=== PATIENT | male | born 1950 | race Caucasian/White ===

== ENCOUNTER 2016-02-10 08:00 | Outpatient (CLI) | payer MEDICARE | END 2016-02-10 23:59 | DX: Z00.00 Encounter for general adult medical examination without abnormal findings (principal); Z12.5 Encounter for screening for malignant neoplasm of prostate | CPT/HCPCS: 80053; 80061; 84443; 85025; G0103 ==

== ENCOUNTER 2017-06-02 05:07 | Outpatient (CLI) | payer MEDICARE ==
[2017-06-02 05:33] LABS: BASOPHILS # (AUTO) 0.1 10^3/uL (0.0-0.1); BASOPHILS % (AUTO) 0.8 %; EOSINOPHILS # (AUTO) 0.3 10^3/uL (0.0-0.7); EOSINOPHILS % (AUTO) 2.9 %; HGB - HEMOGLOBIN 14.6 g/dL (14.0-18.0); LYMPHOCYTES # (AUTO) 3.1 10^3/uL (1.5-3.5); MEAN CORPUSCULAR HEMOGLOBIN 31.9 pg (27.0-31.0); MEAN CORPUSCULAR HGB CONC 33.9 g/dL (32.0-36.0); MEAN CORPUSCULAR VOLUME 94.1 fL (80.0-94.0); MEAN PLATELET VOLUME 9.8 fL (7.4-11.4); MONOCYTES # (AUTO) 0.7 10^3/uL (0.0-1.0); MONOCYTES % (AUTO) 7.5 %; NEUTROPHILS # (AUTO) 5.2 10^3/uL (1.5-6.6); NEUTROPHILS % (AUTO) 55.8 %; PLT - PLATELET COUNT 171 10^3/uL (130-450); RED BLOOD COUNT 4.56 10^6/uL (4.70-6.10); RED CELL DISTRIBUTION WIDTH 13.3 % (12.0-15.0); WHITE BLOOD COUNT 9.3 x10^3/uL (4.8-10.8)
[2017-06-02 06:03] LABS: ALBUMIN/GLOBULIN RATIO 1.4 (1.0-2.2); ALKALINE PHOSPHATASE 61 IU/L (42-121); ALT ALANINE AMINOTRANSFERASE 37 IU/L (10-60); AST ASPARTATE AMINOTRANSFERASE 29 IU/L (10-42); BILIRUBIN,TOTAL 0.4 mg/dL (0.2-1.0); BUN - BLOOD UREA NITROGEN 16 mg/dL (6-20); CALCIUM 8.8 mg/dL (8.5-10.3); CARBON DIOXIDE - CO2 29 mmol/L (21-32); CHLORIDE 102 mmol/L (101-111); CHOL/HDL RATIO 4.7 (<5.0); CHOLESTEROL 185 mg/dL; CREATININE 1.3 mg/dL (0.6-1.2); GFR - MDRD 55 (>89); GLUCOSE 112 mg/dL (70-100); HDL CHOLESTEROL 39 mg/dL; LDL CHOLESTEROL,CALCULATED 120 mg/dL; LDL/HDL RATIO 3.1 (<3.6); SODIUM 134 mmol/L (135-145); TOTAL PROTEIN 6.9 g/dL (6.7-8.2); VLDL CHOLESTEROL 26 mg/dL
[2017-06-04 15:16] LABS: HEPATITIS C ANTIBODY NON-REACTIVE (NON-REACTIVE)
== END 2017-06-02 05:08 | disposition home or self-care (01) ==
LOC: LAB 05:07
PROVIDERS: ATTEND Physician Assistant Medical
DX: Z00.00 Encounter for general adult medical examination without abnormal findings (principal); Z12.5 Encounter for screening for malignant neoplasm of prostate; Z72.89 Other problems related to lifestyle; N18.9 Chronic kidney disease, unspecified; E78.6 Lipoprotein deficiency
CPT/HCPCS: 80053; 80061; 84443; 85025; 86803; G0103; 83721; 84153

== ENCOUNTER 2017-12-07 04:13 | Outpatient (CLI) | payer MEDICARE ==
[2017-12-07 06:32] LABS: GLUCOSE 112 mg/dL (70-100); HDL CHOLESTEROL 37 mg/dL
[2017-12-07 07:03] LABS: HB2 TOTAL 15.1 g/dL; HEMOGLOBIN A1C 0.59 g/dL; HEMOGLOBIN A1C % 5.7 % (4.6-6.2)
== END 2017-12-07 04:14 | disposition home or self-care (01) ==
LOC: LAB 04:13
PROVIDERS: ATTEND Physician Assistant Medical
DX: R73.9 Hyperglycemia, unspecified (principal); E78.6 Lipoprotein deficiency
CPT/HCPCS: 36415; 82947; 83036; 83718

== ENCOUNTER 2019-10-08 12:52 | Outpatient (CLI) | payer MEDICARE ==
--- NOTE | 2019-10-08 14:04 | SLEEP CARE CONSULTATION ---
Information from patient questionnaire entered by Karen Burnham. I have reviewed and concur with the information entered by Karen Burnham. This document represents the service I personally performed and the decisions made by me, Penny Sanches ARNP. History of Present Illness Service Date and Time: 10/08/2019 1252 Reason for Visit: New patient Chief Complaint: reports: Insomnia, Unrefreshed sleep, Snoring, Excessive daytime sleepiness, Observed pauses in breathing, Fatigue, Frequent awakenings at night, Other (shortness of breath) Date of Onset: 4 months Usual bedtime: 2200 Time it takes to fall asleep: 5-10 minutes Snores at night: Yes Observed to quit breathing while asleep: No Sleeps alone due to snoring: Yes Number of times waking at night: 6-8 Reasons for waking at night: reports: Snoring, Bathroom. denies: Choking, Gasping for air Toss, Turn, or Twitch while sleeping: Yes Recalls having dreams: Yes (and no) Usually gets out of bed at: [id number] Feels refreshed in the morning: No Morning headache: Yes (sometimes; 1-2 times a week, recently; last 20 minutes) Sleepy or fatigued during the day: Yes Ever fallen asleep while driving: No Takes day naps: Yes (daily 1-2 hours) Dreams during day naps: No Prior sleep studies: No Additional HPI information: I had the pleasure of seeing RUDDY RUBALCAVA today regarding the possibility of him having a sleep disorder. His current complaints are insomnia, unrefreshed sleep, snoring, excessive daytime sleepiness, possible witness pauses in breathing with gasps/deep draws in of air, fatigue and frequent night awakenings. He states recently he started having shortness of breath with activity that was out of the ordinary. His PCP has already been evaluating him for this and because of his history of hypertension and aortic dissection referred him here for evaluation. He had to dissection in 2016 and has had depression since which caused him to gain weight and keep him from wanting do things. He has noticed more in the last 4 months his snoring and other symptoms. He has been a traveling musician for years and always took Ambien nightly to get to sleep. He thinks his symptoms may have been going on for longer. - Parasomnia Symptoms Ever been unable to move upon waking from sleep: No Walks in sleep: Yes (when young) Talks in sleep: Yes (many years since has done this) Ever acted out dreams in sleep: No Ever felt weak in the knees when startled or emotional: No Bothered by creepy, crawly, restless sensations in legs: Yes (muscle leg movements or cramps) Problems with memory or concentration: No Subjective Initial [place] Sleepiness Scale score: 12 Past Medical History Past Medical History: reports: Hypertension, Claustrophobia (just a little bit), Arthritis, Anxiety, Depression (came with heart surgery and last 4 years), Other (back and neck issues; dissection of of aortic B in February 2015). denies: Congestive Heart Failure, Diabetes, Stroke, Coronary Heart Disease, Insulin resistance, Arrythmia, Hypothyroidism, Anemia, Impotence, Asthma, GERD Social History The patient's occupation is retired. Patient is and lives in [place]. Have you smoked in the past 12 months: No Cigarettes per day (20/pack): 40 Years of smokin Quit date: 1974 Smoking Pack Years: 14.0 Alcohol use: Yes Alcohol amount and frequency: 2 drinks/day Caffeine use: Yes Caffeine amount and frequency: 1 cup/day Family History Family history of sleep disordered breathing: No Family Hx Sleep Apnea: Mother: Snoring Allergies and Home Medications Drug allergies reviewed: Yes (NKDA) Home medication list reviewed: Yes Allergy and home medication list: Labetalol telmisartin amlodipine clonidine HCTZ low dose aspirin Turmeric one puff of cannabis daily Review of Systems Weight gain over past 5 years: 30 Cardiovascular: reports: high blood pressure, leg or foot swelling. denies: palpitations, chest pain, irregular heart rate or pulse Respiratory: reports: shortness of breath. denies: chronic cough Gastrointestinal: denies: heartburn, difficulty swallowing Urinary: reports: frequency, urgency. denies: impotence Neurological: denies: headaches, seizure, head trauma, speech dysfunction, gait or balance problems Psychiatric: reports: anxiety, depression, claustrophobia. denies: mood disorder Ear/Nose/Throat: reports: nasal congestion, dry mouth/throat (all the time), injury to nose (fracture when young), tonsillectomy. denies: sinus problems, nose bleeds, wisdom teeth removed Endocrine: reports: sluggishness, increased urination, unexplained weakness. denies: thyroid disease Musculoskeletal: reports: joint pain, neck pain, back pain, joint swelling, musc le pain or cramping, mobility problems Immunologic: reports: allergies to food or environment (pollen) Physical Exam Blood Pressure: 148/85 Cuff size: long Heart Rate: 55 O2 Saturation: 97 Height: 5 ft 9 in Weight: 280 lb Body Mass Index: 41.3 BMI Classification: Morbidly Obese HEENT: No craniofacial malformation Nostrils: patent to airflow Turbinates: normal Septum: midline Mouth and throat: normal Soft palate: long Hard palate: normal Uvula: long Uvula visualization: 100% Mallampati Class I Tongue: enlarged in size with teeth mancia on lateral edges Tonsils: absent bilaterally Chin and jaw: normal size and position Neck: normal w/o lymphadenopathy or thyromegaly Lungs: clear bilaterally Impression and Plan 1. Suspected Obstructive Sleep Apnea-Hypopnea Syndrome, as suggested by a history of loud and irregular snoring, observed cessation of breath while asleep, gasping or choking in sleep, frequent awakening during the night, unrefreshed sleep, and excessive daytime sleepiness. Narrow oropharynx and obesity are common predisposing factors for obstructive sleep apnea-hypopnea syndrome. Patient has a history of hypertension and an aortic dissection. He is morbidly obese with a BMI of 41.3. Patient states he is trying to lose weight and take care of his health. I recommend proceeding to polysomnography to confirm the diagnosis and to assess severity. If the patient has significant sleep disordered breathing, a manual CPAP titration study will also be performed to find the optimal treatment pressure. I informed the patient of what the sleep studies involve and after some discussion, obtained agreement to proceed. The pathophysiology of obstructive sleep apnea-hypopnea syndrome was discussed with the patient and health risks of cardiovascular and cerebrovascular disease if not treated. AASM brochure for obstructive sleep apnea-hypopnea syndrome given and reviewed. Risks of drowsy driving discussed in detail and patient advised to avoid long distance driving and to cloth covered helmet puller at the first sign of drowsiness. Patient agreed to plan. * Schedule polysomnography +- manual CPAP titration study. * Avoid long distance driving or driving when feeling sleepy. * Avoid alcohol, sedative and muscle relaxant around bedtime. * Attempt to lose weight. * Review instructions provided by trained office staff on how to prepare for the sleep study. * Return for follow-up after sleep study completed. Visit Type: In Office Time Spent with Patient (minutes): 32 Provider Statement: I spent 100% of the Face to Face Visit with the patient with greater than 50% spent counseling the patient and coordination of care.
[2019-10-08 14:05] VITALS: BP 148/85
== END 2019-10-08 12:53 | disposition home or self-care (01) ==
LOC: SC 12:52
PROVIDERS: ATTEND Nurse Practitioner Family
DX: G47.10 Hypersomnia, unspecified (principal); R53.83 Other fatigue; R06.83 Snoring; R06.81 Apnea, not elsewhere classified; G47.8 Other sleep disorders; E66.01 Morbid (severe) obesity due to excess calories; Z68.41 Body mass index [BMI] 40.0-44.9, adult; I10 Essential (primary) hypertension
CPT/HCPCS: 99204; G0463; 99212

== ENCOUNTER → 2019-11-08 | Outpatient (CLI) | payer MEDICARE | LOC: SC 19:30 | PROVIDERS: ATTEND Nurse Practitioner Family | DX: G47.33 Obstructive sleep apnea (adult) (pediatric) (principal); E66.01 Morbid (severe) obesity due to excess calories; Z68.41 Body mass index [BMI] 40.0-44.9, adult | CPT/HCPCS: G0399 ×2; 95806 ==

== ENCOUNTER 2019-11-13 15:11 | Outpatient (CLI) | payer MEDICARE ==
--- NOTE | 2019-11-13 17:22 | XRAY Report ---
PROCEDURE: Chest 2 View X-Ray INDICATIONS: SHORTNESS OF BREATH TECHNIQUE: 2 view(s) of the chest. COMPARISON: 02/17/2015. FINDINGS: Surgical changes and devices: Aortic arch endovascular stent graft.. Lungs and pleura: No pleural effusions or pneumothorax. Lungs are clear. Mediastinum: Mediastinal contours are normal. Heart size is normal. Bones and chest wall: No suspicious bony abnormalities. Soft tissues appear unremarkable. IMPRESSION: No acute cardiopulmonary disease process. Reviewed by: Bernie Rivas MD, PhD on 11/13/2019 5:21 PM PDT Approved by: Bernie Rivas MD, PhD on 11/13/2019 5:21 PM PDT Station ID: [id number]
== END 2019-11-13 15:12 | disposition home or self-care (01) ==
LOC: DI 15:11
PROVIDERS: ATTEND Internal Medicine
DX: R06.02 Shortness of breath (principal)
CPT/HCPCS: 71046

== ENCOUNTER 2019-11-25 17:29 | Outpatient (CLI) | payer MEDICARE ==
--- NOTE | 2019-11-25 10:32 | SLEEP CARE CONSULTATION ---
Information from patient questionnaire entered by Karen Burnham. I have reviewed and concur with the information entered by Karen Burnham. This document represents the service I personally performed and the decisions made by me, Derrick Mcfarland MD, [facility]. History of Present Illness Service Date and Time: 11/25/2019 1020 Initial [place] Sleepiness Scale score: 12 (in 2019) Additional HPI information: To minimize the risk of COVID-19 exposure, the patient has requested and consented to this telephone visit. The patient also agrees to having his insurance billed. HPI: Mr. Hernandez was called for a follow up of the sleep study he had on 11/08/2019. The test showed severe obstructive sleep apnea-hypopnea with an AHI of 52.6 per hour of recording time was based on a total of 140 scored apneas and 165 scored hypopneas with 4% desaturations. Supine AHI 4%: 36.6 per hour. Non- supine AHI4%: 54.0 per hour. Patient's baseline O2 saturation was 93.7 %. The patient spent 119.4 minutes at an oxygen saturation less than 90%, and 10.2 minutes less than 85%. The desaturation index was 53.8 events per hour sleep time. The lowest saturation was 74.0%. The patient was informed of these findings. I explained to him the pathophysiology behind obstructive sleep apnea. We then spent quite a bit of time discussing different treatment options. For mild obstructive sleep apnea, surgery and oral appliance are alternatives to nasal CPAP therapy but in moderate or severe cases, nasal CPAP is the most effective and reliable treatment. Weight loss in an obese individual is strongly recommended. After some discussion, he opted to go with the nasal CPAP therapy. I explained to him how CPAP machine works and what to expect when using the machine. He is encouraged to use CPAP every night especially in the first 2 to 3 nights in order to get used to it. He should call his CPAP supplier or me to discuss any mechanical problem that may occur. If he snores or feels like he is not getting enough air from the machine, he should notify me and I will increase the pressure. Sleep Study - Results Type of Sleep Study: Home sleep study Year and Where: 11/2019 [facility] Allergies and Home Medications Drug allergies reviewed: Yes Home medication list reviewed: Yes Review of Systems Review of systems same as previous: Yes Physical Exam Vital signs obtained and entered by: N/A Height: 5 ft 9 in Impression and Plan IMPRESSION: 1. Obstructive Sleep Apnea-Hypopnea Syndrome, severe, associated with moderate hypoxemia. Obviously this is the cause of the patients symptoms of unrefreshed sleep, and excessive daytime sleepiness. As mentioned above, the patient will be started on an autoCPAP set at 5 - 15 cmH2O. Depending on his response and compliance he may be brought back for an overnight CPAP titration study. PLAN: 1. Prescription made for an autoCPAP, heated humidifier, and related supplies. 2. Attempt to lose weight and avoid alcohol consumption near bedtime. 3. The patient is again cautioned about driving until his sleepiness completely resolves on the CPAP therapy. 4. Consider referring the patient to a cco & president for further evaluation of dyspnea on exertion. 5. Return in six weeks for follow up. I will assess his response and compliance at that time. Prescriptions: Auto CPAP Follow up with Sleep Care in: 1-2 months Visit Type: Telehealth Video Video Type: Yenifer Patient Location: Home Location of Provider: Home Patient agrees and consents to this telehealth visit type: Yes Patient agrees to have their insurance billed: Yes Time Spent with Patient (minutes): 15 Provider Statement: I spent 100% of the Telehealth Video Call with the patient with greater than 50% spent counseling the patient and coordination of care.
== END 2019-11-25 17:30 | disposition home or self-care (01) ==
LOC: SC 17:29
PROVIDERS: ATTEND Internal Medicine Pulmonary Disease
DX: G47.33 Obstructive sleep apnea (adult) (pediatric) (principal)

== ENCOUNTER 2020-03-27 14:39 | Emergency (ER) | payer MEDICARE ==
--- NOTE | 2020-03-27 15:04 | ED Physician Documentation ---
History of Present Illness - Stated complaint Stated Complaint: SWOLLEN FEET - Chief complaint Chief Complaint: Ext Problem - History obtained from History obtained from: Patient - Additonal information Additional information: He has a history of surgically repaired aortic dissection and recalcitrant hypertension for which he takes labetalol 200 in the morning and then 400 in the afternoon and 400 in the evening, clonidine 0.2 mg in the morning, telmisartan 40 mg twice a day, amlodipine 5 mg twice a day, hydrochlorothiazide 25 mg once a day. Over last month he developed bilateral pedal edema, it started on the right but is now both sides. Feels full but not painful. No increase shortness of breath or chest pain. Review of Systems Ten Systems: 10 systems reviewed and negative Cardiac: denies: Chest pain / pressure, Palpitations Respiratory: denies: Dyspnea, Cough PD PAST MEDICAL HISTORY - Past Medical History Cardiovascular: Hypertension, [place] Respiratory: None Endocrine/Autoimmune: None GI: None : None, Other HEENT: None Psych: None Musculoskeletal: Osteoarthritis Derm: None - Past Surgical History Past Surgical History: No HEENT: Tonsil/Adenoidectomy - Present Medications Home Medications: Ambulatory Orders Medication Instructions Recorded Confirmed Telmisartan/Hydrochlorothiazid 1 tab PO DAILY 02/22/15 03/27/20 [Micardis Hct 40-12.5 mg Tablet] hydroCHLOROthiazide 25 mg PO DAILY 02/22/15 03/27/20 [Hydrochlorothiazide] Ascorbic Acid [Vitamin C] 1,000 mg PO DAILY 03/27/20 03/27/20 Furosemide [Lasix] 20 mg PO DAILY #30 03/27/20 Labetalol [Trandate] 200 mg PO TID 03/27/20 03/27/20 Potassium Chloride 10 meq PO DAILY #30 03/27/20 amLODIPine [Norvasc] 5 mg PO BID 03/27/20 03/27/20 cloNIDine [Catapres] 0.2 mg PO DAILY 03/27/20 03/27/20 - Allergies Allergies/Adverse Reactions: Allergies Allergy/AdvReac Type Severity Reaction Status Date / Time No Known Drug Allergies Allergy Verified 03/27/20 14:46 - Social History Does the pt smoke?: No Smoking Status: Never smoker Does the pt drink ETOH?: Yes Does the pt have substance abuse?: No - Immunizations Immunizations are current?: Yes PD ED PE NORMAL - Vitals Vital signs reviewed: Yes - General General: Alert and oriented X 3, No acute distress - HEENT HEENT: PERRL, EOMI - Neck Neck: Supple, no meningeal sign, No bony TTP - Cardiac Cardiac: RRR, No murmur - Respiratory Respiratory: No respiratory distress, Clear bilaterally - Abdomen Abdomen: Non tender - Extremities Extremities: Other (2+ pitting pedal edema bilaterally up to the upper calves, nontender) - Neuro Neuro: Alert and oriented X 3, Normal speech Results - Vitals Vitals: Vital Signs - 24 hr 03/27/20 03/27/20 03/27/20 14:46 16:31 17:42 Temperature 36.5 C Heart Rate 76 76 80 Respiratory 16 19 18 Rate Blood Pressure 189/100 H 156/81 H 119/64 O2 Saturation 97 100 100 Oxygen O2 Source Room air - Labs Labs: Laboratory Tests 03/27/20 03/27/20 15:04 15:04 WBC 9.5 RBC 4.24 L Hgb 14.1 Hct 40.0 L MCV 94.3 H MCH 33.3 H MCHC 35.3 RDW 12.6 Plt Count 142 MPV 10.4 Neut # (Auto) 5.5 Lymph # (Auto) 2.7 [place] # (Auto) 1.0 Eos # (Auto) 0.3 Baso # (Auto) 0.0 Absolute Nucleated RBC 0.00 Nucleated RBC % 0.0 Sodium 136 Potassium 3.6 Chloride 98 L Carbon Dioxide 27 Anion Gap 11.0 BUN 21 H Creatinine 1.5 H Estimated GFR (MDRD) 46 L Glucose 116 H Calcium 9.0 Magnesium 2.3 Total Bilirubin 0.8 AST 27 ALT 26 Alkaline Phosphatase 47 Total Protein 6.8 Albumin 4.0 Globulin 2.8 Albumin/Globulin Ratio 1.4 PD MEDICAL DECISION MAKING - ED course ED course: 69-year-old gentleman with recalcitrant hypertension and history of aortic dissection and mild renal insufficiency presents with 4 weeks worth of pedal edema. Ultrasound was done and negative for DVT. His renal function is subpar but it has been worse in the past. He was given Lasix and potassium and advised to start checking his weight daily and keeping a log and to follow-up with his primary care physician. Prior to discharge his blood pressure had normalized. Departure - Departure Disposition: 01 Home, Self Care Clinical Impression: Pedal edema, Renal insufficiency Condition: Stable Instructions: ED Edema Legs Bilateral Prescriptions: Furosemide [Lasix] 20 mg PO DAILY #30 Potassium Chloride 10 meq PO DAILY #30 Comments: You can stop the Lasix/furosemide if you are edema goes away. On any day you take the diuretic, you need to take the potassium pill to. Follow-up with your doctor within the week for recheck, potential repeat labs. Discharge Date/Time: 03/27/20 17:42
[2020-03-27 15:09] LABS: BASOPHILS % (AUTO) 0.3 %; EOSINOPHILS # (AUTO) 0.3 10^3/uL (0.0-0.7); HGB - HEMOGLOBIN 14.1 g/dL (14.0-18.0); LYMPHOCYTES # (AUTO) 2.7 10^3/uL (1.5-3.5); LYMPHOCYTES % (AUTO) 28.6 %; MEAN CORPUSCULAR HEMOGLOBIN 33.3 pg (27.0-31.0); MEAN CORPUSCULAR HGB CONC 35.3 g/dL (32.0-36.0); MEAN CORPUSCULAR VOLUME 94.3 fL (80.0-94.0); MEAN PLATELET VOLUME 10.4 fL (7.4-11.4); MONOCYTES % (AUTO) 10.2 %; NEUTROPHILS # (AUTO) 5.5 10^3/uL (1.5-6.6); NEUTROPHILS % (AUTO) 57.5 %; PLT - PLATELET COUNT 142 10^3/uL (130-450); RED BLOOD COUNT 4.24 10^6/uL (4.70-6.10); RED CELL DISTRIBUTION WIDTH 12.6 % (12.0-15.0); WHITE BLOOD COUNT 9.5 x10^3/uL (4.8-10.8)
[2020-03-27 15:21] LABS: ALBUMIN/GLOBULIN RATIO 1.4 (1.0-2.2); BILIRUBIN,TOTAL 0.8 mg/dL (0.2-1.0); CREATININE 1.5 mg/dL (0.6-1.2); MAGNESIUM 2.3 mg/dL (1.7-2.8); TOTAL PROTEIN 6.8 g/dL (6.7-8.2)
[2020-03-27] MEDS ORDERED: FUROSEMIDE 20 MG TABLET PO STA (16:13)
[2020-03-27] MEDS ORDERED: POTASSIUM CHLORIDE 10 MEQ CAPSULE PO STA (16:13)
[2020-03-27 17:43] VITALS: BP 119/64
--- NOTE | 2020-03-27 17:50 | Ultrasound Report ---
PROCEDURE: Duplex Ext Veins Bilateral INDICATIONS: Soto Thornton TECHNIQUE: Real-time imaging, as well as color and pulse Doppler interrogation, were performed of the deep veins of both legs from the inguinal ligament to the popliteal fossa. COMPARISON: None FINDINGS: The deep veins are normally compressible, and free of intraluminal thrombus. Color and pu lse Doppler demonstrate normal phasic intravascular flow. There is normal augmentation response to d istal compression maneuver. Incidental note is made of a fluid collection on the right posterior medial to the ankle measuring 6. 6 x 1.8 x 2.2 cm. Medial to the left ankle, there is an additional fluid collection that measures 2.9 x 1.1 x 1.5 cm. IMPRESSION: No findings of deep venous thrombosis are seen. Incidental note is made of fluid collections within the region of the ankles, right larger than left. Note: Concordant preliminary findings given by the ventilation equipment tender upon the completion of the examination to Dr. Thornton at 5:30 PM on 03/27/2020. Reviewed by: Corby Ceja MD on 03/27/2020 4:49 PM [facility] Approved by: Corby Ceja MD on 03/27/2020 4:49 PM [facility] Station ID: [id number]
== END 2020-03-27 17:42 | disposition home or self-care (01) ==
LOC: ED 14:39
DX: R60.0 Localized edema (principal); N28.9 Disorder of kidney and ureter, unspecified; I10 Essential (primary) hypertension
CPT/HCPCS: 36415; 80053; 83735; 85025; 93970; 99283; 99284; A9270

== ENCOUNTER 2020-04-13 10:08 | Outpatient (CLI) | payer MEDICARE ==
--- NOTE | 2020-04-13 10:44 | XRAY Report ---
PROCEDURE: Ankle 3 View LT INDICATIONS: SWELLING OF ANKLE JOINT TECHNIQUE: 3 views of the ankle were acquired. COMPARISON: None FINDINGS: Bones: There is lateral subluxation of the talus. There is severe periarticular osteophyte formation at the tibiotalar and subtalar joints. There is remodeling of the tibiotalar interface. Severe narrow ing of the lateral tibiotalar joint. Soft tissues: No tibiotalar joint effusion. Achilles tendon appears normal. IMPRESSION: 1. Severe tibiotalar joint osteoarthritis with associated bony remodeling as described above. 2. No acute fracture. No osseous lesion. If symptoms and/or clinical suspicion for pathology continue , further assessment with repeat plain films, or advanced imaging (e.g., CT, MRI, or bone scan) is re commended for further assessment. Reviewed by: Paulo Dodge MD on 04/13/2020 10:43 AM [facility] Approved by: Paulo Dodge MD on 04/13/2020 10:43 AM PST Station ID: [id number]
--- NOTE | 2020-04-13 10:45 | XRAY Report ---
PROCEDURE: Foot 3 View LT INDICATIONS: LEFT FOOT EFFUSION TECHNIQUE: 3 views of the foot were acquired. COMPARISON: None FINDINGS: Bones: No fractures or dislocations. No suspicious bony lesions. Periarticular osteophyte formatio n at the tibiotalar and subtalar joints, as well as the first metatarsophalangeal joint. Soft tissues: No tibiotalar joint effusion. Achilles tendon appears normal. IMPRESSION: Osteoarthritis. No acute fracture. No osseous lesion. If symptoms and/or clinical suspicion for patho logy continue, further assessment with repeat plain films, or advanced imaging (e.g., CT, MRI, or bon e scan) is recommended for further assessment. Reviewed by: Paulo Dodge MD on 04/13/2020 10:44 AM [facility] Approved by: Paulo Dodge MD on 04/13/2020 10:44 AM [facility] Station ID: [id number]
== END 2020-04-13 10:09 | disposition home or self-care (01) ==
LOC: DI.S 10:08
PROVIDERS: ATTEND Nurse Practitioner Family
DX: M25.472 Effusion, left ankle (principal); M19.072 Primary osteoarthritis, left ankle and foot

== ENCOUNTER 2020-07-21 09:59 | Outpatient (CLI) | payer MEDICARE ==
--- NOTE | 2020-07-21 10:35 | SLEEP CARE CONSULTATION ---
Information from patient questionnaire entered by Arlette Smith. I have reviewed and concur with the information entered by Arlette Smith. This document represents the service I personally performed and the decisions made by , Penny Sanches ARNP. History of Present Illness Service Date and Time: 07/21/2020 0959 Previous diagnosis: Severe, Obstructive Sleep Apnea-Hypopnea Syndrome AHI: 52.6 (in 2019) Reason for follow up: first compliance Equipment type: CPAP Equipment obtained from: [facility] (not getting supplies; called, but no results or supplies) Mask style: Nasal Backup mask available: Yes (old mask) Last cushion change: 1.5 weeks Prior sleep studies: Yes Year and Where: 2019 - [facility] Type of Sleep Study: Home sleep study HPI additional information: RUDDY RUBALCAVA was diagnosed to have severe, AHI 52.6, obstructive sleep apnea- hypopnea syndrome and returned today for CPAP therapy first compliance follow- up. CPAP Compliance Data - Data Reviewed with Patient Average duration of nightly device use: 7 hr 2 min Compliance rate %: 100 (last 30)(97 initial 30 days) Current pressure setting (cmH2O): 5-15 (median 9.7, avg 14.4, max 14.8) Humidity settin Average residual AHI: 1.9 Subjective Patient concerns: denies: aerophagia, mask discomfort, air blowing in eyes, mask leak noise, condensation in mask/hose, nasal congestion, dry mouth, nose, throat, epistaxis, other Observed to snore while using device: No Current pressure setting perceived as: comfortable On therapy, patient: reports: sleeping better, awakening more refreshed, being more awake and alert during the day, more rested overall. denies: drowsiness while driving Initial [place] Sleepiness Scale score: 12 (in 2019) Current [place] Sleepiness Scale score: 4 Allergies and Home Medications Home medication list reviewed: Yes (no changes) Review of Systems Review of systems same as previous: Yes (no changes) Physical Exam Heart Rate: 55 O2 Saturation: 98 Height: 5 ft 9 in Weight: 284 lb Body Mass Index: 41.9 BMI Classification: Morbidly Obese Impression and Plan 1. Obstructive Sleep Apnea-Hypopnea Syndrome, severe, with excellent treatment compliance and good apnea control. On CPAP therapy, the patient has better sleep quality and is more rested overall. Patient comes in for follow up at 6 months. He states he did not know he was supposed to come in a month after getting his machine for compliance check and pressure adjustment. He was 97% compliant his first month and is 100% compliant at this visit. He states it took 2 weeks for him to get used to the machine and mask but now he wears it religiously. He got his machine from [facility] but has not been able to get more supplies. He called them but has still never received any supplies. I advised him to call them again and try to get it straightened out. He is currently paying for the supplies he needs. I will adjust his pressure to 10-15 cmH2O to reflect the pressures he is using and have him follow up in 3 months. I encouraged patient to try to lose weight and he states he does try to use a stationary bike to get some exercise because it does not aggravate his knee pain. Patient's apnea severity and rationale for treatment to reduce apnea, improve sleep quality and reduce cardiovascular and cerebrovascular events was reviewed. I also reviewed the benefit of consistent device use of CPAP for hypertension, depression and anxi ety. * Change auto CPAP pressure to 10-15 cmH2O * Notify me if snoring with mask or feeling that the pressure is too much or too little * Attempt to lose weight * Call this office if any problems using CPAP * Return for follow up in 3 months, or sooner if concerns arise Counseling Topics: Spare mask, Weight loss health impact Visit Type: In Office Time Spent with Patient (minutes): 23 Provider Statement: I spent 100% of the Face to Face Visit with the patient with greater than 50% spent counseling the patient and coordination of care.
== END 2020-07-21 10:00 | disposition home or self-care (01) ==
LOC: SC 09:59
PROVIDERS: ATTEND Nurse Practitioner Family
DX: G47.33 Obstructive sleep apnea (adult) (pediatric) (principal); E66.01 Morbid (severe) obesity due to excess calories; Z68.41 Body mass index [BMI] 40.0-44.9, adult
CPT/HCPCS: 99213; G0463; 99212

== ENCOUNTER 2020-07-31 13:01 | Outpatient (CLI) | payer MEDICARE ==
--- NOTE | 2020-07-31 18:34 | Ultrasound Report ---
PROCEDURE: Testicle w/Doppler INDICATIONS: TESTI PX TECHNIQUE: Real-time scanning was performed of the scrotum and testicles, with image documentation. Color and p ulse Doppler interrogation was performed of both testicles. COMPARISON: None. FINDINGS: Right: Testicle is normal in size at 3.6 x 1.7 x 2.1 cm, and homogenous in echotexture. Epididymis is normal in overall size and morphology. Small hydrocele. No varicocele. Overlying scrotal skin is n ormal in thickness. Right epididymal cyst measuring 1.2 cm maximum diameter. Left: Testicle is normal in size at 5.0 x 2.5 x 3.3 cm, and homogeneous in echotexture. Epididymis is normal in overall size and morphology. Small hydrocele, no varicocele. Overlying scrotal skin is normal in thickness. Doppler: Color and pulse Doppler demonstrate normal and symmetric arterial flow in both testicles. IMPRESSION: 1. Normal-sized testicles with no evidence of testicular mass or testicular torsion. 2. Bilateral hydroceles, left greater than right. Reviewed by: Trey Reynoso MD on 07/31/2020 5:33 PM FLORA Approved by: Trey Reynoso MD on 07/31/2020 5:33 PM FLORA Station ID: [id number]
== END 2020-07-31 13:02 | disposition home or self-care (01) ==
LOC: DI 13:01
PROVIDERS: ATTEND Nurse Practitioner Family
DX: N50.819 Testicular pain, unspecified (principal); N43.3 Hydrocele, unspecified
CPT/HCPCS: 93975

== ENCOUNTER 2020-10-19 08:49 | Outpatient (CLI) | payer MEDICARE ==
--- NOTE | 2020-10-19 09:11 | SLEEP CARE CONSULTATION ---
Information from patient questionnaire entered by Arlette Smith. I have reviewed and concur with the information entered by Arlette Smith. This document represents the service I personally performed and the decisions made by , Penny Sanches ARNP. History of Present Illness Service Date and Time: 10/19/2020 0849 Previous diagnosis: Severe, Obstructive Sleep Apnea-Hypopnea Syndrome AHI: 52.6 (in 2019) Reason for follow up: three month Equipment type: CPAP [facility] (having difficulty getting ahold and getting supplies) Mask style: Nasal Backup mask available: Yes (old mask) Last cushion change: 3 months Prior sleep studies: Yes Year and Where: 2019 - [facility] Type of Sleep Study: Home sleep study HPI additional information: RUDDY RUBALCAVA was diagnosed to have severe, AHI 52.6, obstructive sleep apnea- hypopnea syndrome and returned today for CPAP therapy three month follow-up. CPAP Compliance Data - Data Reviewed with Patient Average duration of nightly device use: 7 hr 23 min Compliance rate %: 100 (90 days) Current pressure setting (cmH2O): 10-15 Humidity settin Average residual AHI: 1.2 Subjective Patient concerns: reports: mask leak noise (just due to sleeping on side). denies: aerophagia, mask discomfort, air blowing in eyes, condensation in mask/hose, nasal congestion, dry mouth, nose, throat, epistaxis, other Observed to snore while using device: No Current pressure setting perceived as: comfortable On therapy, patient: reports: sleeping better, awakening more refreshed, being more awake and alert during the day, more rested overall. denies: drowsiness while driving Initial [place] Sleepiness Scale score: 12 (in 2019) Current [place] Sleepiness Scale score: 5 Allergies and Home Medications Home medication list reviewed: Yes (no changes) Review of Systems Review of systems same as previous: Yes (no changes) Physical Exam Heart Rate: 62 O2 Saturation: 98 Height: 5 ft 9 in Weight: 292 lb Body Mass Index: 43.1 BMI Classification: Morbidly Obese Impression and Plan 1. Obstructive Sleep Apnea-Hypopnea Syndrome, severe, with excellent treatment compliance and good apnea control. On CPAP therapy, the patient has better sleep quality and is more rested overall. Patient is very satisfied with current treatment and feels his pressure is comfortable. Patient is having difficulty getting supplies from [facility]. He states he calls them and has to leave a message but nobody ever called him back. He has been buying some supplies online to be able to change things out and he needs filters at this time. Patient was encouraged to continue to try and contact them for his supplies. He voiced understanding. Patient was encouraged to lose weight for their overall health and to reduce apneas. Patient's apnea severity and rationale for treatment to reduce apnea, improve sleep quality and reduce cardiovascular and cerebrovascular events was reviewed. I also reviewed the benefit of consistent device use of CPAP for hypertension, depression and anxiety. * Continue auto CPAP pressure at 10-15 cmH2O * Notify me if snoring with mask or feeling that the pressure is too much or too little * Attempt to lose weight * Call this office if any problems using CPAP * Return for follow up in 6 months, or sooner if concerns arise Counseling Topics: Spare mask, Weight loss health impact Visit Type: In Office Time Spent with Patient (minutes): 15 Provider Statement: I spent 100% of the Face to Face Visit with the patient with greater than 50% spent counseling the patient and coordination of care.
== END 2020-10-19 08:50 | disposition home or self-care (01) ==
LOC: SC 08:49
PROVIDERS: ATTEND Nurse Practitioner Family
DX: G47.33 Obstructive sleep apnea (adult) (pediatric) (principal); E66.01 Morbid (severe) obesity due to excess calories; Z68.41 Body mass index [BMI] 40.0-44.9, adult
CPT/HCPCS: 99212; G0463

== ENCOUNTER 2021-08-23 14:16 | Outpatient (CLI) | payer MEDICARE ==
[2021-08-23 14:42] VITALS: BP 119/79
--- NOTE | 2021-08-23 14:42 | SLEEP CARE CONSULTATION ---
Information from patient questionnaire entered by Lobo Vanessa MA. I have reviewed and concur with the information entered by Lobo Vanessa MA. This document represents the service I personally performed and the decisions made by , Penny Sanches ARNP. History of Present Illness Service Date and Time: 08/23/2021 1416 Previous diagnosis: Severe, Obstructive Sleep Apnea-Hypopnea Syndrome AHI: 52.6 (in 2019) Reason for follow up: annual (RESMED, WALTERS 02/04/2020, LAST SEEN 07/21/2020, ) Equipment type: CPAP Equipment obtained from: [employer] (getting supplies as needed) Mask style: Nasal Mask brand: Resmed Backup mask available: Yes (old mask) Last cushion change: 3 months Prior sleep studies: Yes Year and Where: 2019 - [facility] Type of Sleep Study: Home sleep study HPI additional information: RUDDY RUBALCAVA was diagnosed to have severe, AHI 52.6, obstructive sleep apnea- hypopnea syndrome and returned today for CPAP therapy annual follow-up. Sleep Study - Results Type of Sleep Study: Home sleep study Prior sleep studies: Yes Year and Where: 2019 - [facility] CPAP Compliance Data - Data Reviewed with Patient Average duration of nightly device use: 7 HOURS 28 MINUTES Compliance rate %: 100 (05/24/2021-08/21/2021; 90/ days) Current pressure setting (cmH2O): 10-15 Average residual AHI: 1.6 Central apnea: .1 Obstructive apnea: .2 Hypopnea: 1.2 Average large leak: 1.4 Subjective Patient concerns: reports: mask leak noise (when on his side). denies: aerophagia, mask discomfort, air blowing in eyes, condensation in mask/hose, nasal congestion, dry mouth, nose, throat, epistaxis, other Observed to snore while using device: No Current pressure setting perceived as: comfortable On therapy, patient: reports: sleeping better, awakening more refreshed, being more awake and alert during the day, more rested overall. denies: drowsiness while driving Initial [place] Sleepiness Scale score: 12 (in 2019) Current [place] Sleepiness Scale score: 5 (08/23/2021) Allergies and Home Medications Home medication list reviewed: Yes (no changes) Allergy and home medication list: Allergies No Known Drug Allergies Allergy (Verified 03/27/20 14:46) Review of Systems Review of systems same as previous: Yes (no changes) Physical Exam Vital signs obtained and entered by: Rainer VANESSA CMA AAW Blood Pressure: 119/79 (RESP 16, PULSE 70, RIGHT) Heart Rate: 71 O2 Saturation: 98 (PAPER MASK) Height: 5 ft 9 in Weight: 295 lb (CLOTHES) Weight change since last visit: DIET, GYM LBS DUE TO MEDS, Body Mass Index: 43.5 BMI Classification: Morbidly Obese Impression and Plan 1. Obstructive Sleep Apnea-Hypopnea Syndrome, severe, with excellent treatment compliance and good apnea control. On CPAP therapy, the patient has better sleep quality and is more rested overall. Patient has significant improvement of his sleep apnea and feels the pressure is "perfect ". Patient denies problems with oral dryness, nasal congestion, epistaxis, skin irritation or aerophagia. Patient's apnea severity and rationale for treatment to reduce apnea, improve sl eep quality and reduce cardiovascular and cerebrovascular events was reviewed. I also reviewed the benefit of consistent device use of CPAP for hypertension, depression and anxiety. 2. Obesity, unspecified. Patient has lost weight and is back to around previous weight from last year. Currently patients BMI is 43.5. Obesity increases the risk of apnea, CPAP pressure requirements and overall health risks especially cardiovascular and diabetes. Thus patient is advised to continue to try to lose weight. Weight loss can be done with reducing portion size, reducing refined foods and balancing content with vegetables, fruit and whole grain foods. In addition, patient encouraged to get regular exercise. The patient's CPAP pressure range should accommodate some weight loss. Symptoms to report for additional pressure adjustment discussed.43.5 just lost 14 lbs * Continue auto CPAP pressure at 10-15 cmH2O * Notify me if snoring with mask or feeling that the pressure is too much or too little * Continue to try to lose weight * Call this office if any problems using CPAP * Return for follow up in 1 year, or sooner if concerns arise Counseling Topics: Spare mask, Weight loss health impact Visit Type: In Office Time Spent with Patient (minutes): 12 Provider Statement: I spent 100% of the Face to Face Visit with the patient with greater than 50% spent counseling the patient and coordination of care.
== END 2021-08-23 14:17 | disposition home or self-care (01) ==
LOC: SC 14:16
PROVIDERS: ATTEND Nurse Practitioner Family
DX: G47.33 Obstructive sleep apnea (adult) (pediatric) (principal); E66.01 Morbid (severe) obesity due to excess calories; Z68.41 Body mass index [BMI] 40.0-44.9, adult
CPT/HCPCS: 99212; G0463

== ENCOUNTER 2022-09-06 15:19 | Outpatient (CLI) | payer MEDICARE ==
--- NOTE | 2022-09-06 15:41 | SLEEP CARE CONSULTATION ---
Information from patient questionnaire entered by Sanjay Aldana. I have reviewed and concur with the information entered by Sanjay Aldana. This document represents the service I personally performed and the decisions made by , Penny Snaches ARNP. History of Present Illness Service Date and Time: 09/06/2022 1519 Previous diagnosis: Severe, Obstructive Sleep Apnea-Hypopnea Syndrome AHI: 52.6 (in 2019) Reason for follow up: annual (Last seen 08/2021) Equipment type: CPAP (Airsense 10, s/u 01/2020) Equipment obtained from: [email or web address] (getting supplies as needed) Mask style: Nasal Mask brand: Resmed ([id number]) Backup mask available: Yes (old mask) Last cushion change: 2 weeks Prior sleep studies: Yes Year and Where: 2019 - [facility] Type of Sleep Study: Home sleep study HPI additional information: RUDDY RUBALCAVA was diagnosed to have severe, AHI 52.6, obstructive sleep apnea- hypopnea syndrome and returned today for CPAP therapy annual follow-up. Sleep Study - Results Type of Sleep Study: Home sleep study Prior sleep studies: Yes Year and Where: 2019 - [facility] CPAP Compliance Data - Data Reviewed with Patient Average duration of nightly device use: 7 h 26 min Compliance rate %: 100 (180/180 days used) Current pressure setting (cmH2O): 10-15 Average residual AHI: 1.7 Central apnea: 0.2 Obstructive apnea: 0.3 Hypopnea: 1.2 Average large leak: 2.7 L/min Subjective Patient concerns: denies: aerophagia, mask discomfort, air blowing in eyes, mask leak noise, condensation in mask/hose, nasal congestion, dry mouth, nose, throat, epistaxis Observed to snore while using device: No Current pressure setting perceived as: comfortable On therapy, patient: reports: sleeping better, awakening more refreshed, being more awake and alert during the day, more rested overall. denies: drowsiness while driving Initial [place] Sleepiness Scale score: 12 (in 2019) Current [place] Sleepiness Scale score: 5 Allergies and Home Medications Known drug allergies: No Drug allergies reviewed: Yes Home medication list reviewed: Yes (no changes) Allergy and home medication list: Allergies No Known Drug Allergies Allergy Review of Systems Review of systems same as previous: Yes (no changes) Physical Exam Vital signs obtained and entered by: Penny Enriquez NP Blood Pressure: 124/65 Cuff size: wrist (left) Heart Rate: 68 O2 Saturation: 95 Height: 5 ft 9 in Weight: 286 lb 12.8 oz Weight change since last visit: 11 lb loss Body Mass Index: 42.3 BMI Classification: Morbidly Obese Impression and Plan 1. Obstructive Sleep Apnea-Hypopnea Syndrome, severe, with good treatment compliance and good apnea control. On CPAP therapy, the patient has better sleep quality and is more rested overall. Patient has significant improvement of their sleep apnea and is satisfied with current CPAP therapy. Patient denies problems with oral dryness, nasal congestion, epistaxis, skin irritation or aerophagia. Patient's apnea severity and rationale for treatment to reduce apnea, improve sleep quality and reduce cardiovascular and cerebrovascular events was reviewed. I also reviewed the benefit of consistent device use of CPAP for hypertension, depression and anxiety. 2. Obesity, unspecified. Currently patients BMI is 42.3. He has been exercising more and using intermittent fasting too. Obesity increases the risk of apnea, CPAP pressure requirements and overall health risks especially cardiovascular and diabetes. Thus patient is advised to lose weight. * Continue auto CPAP pressure at 10-15 cmH2O * Update supply prescription * Notify me if snoring with mask or feeling that the pressure is too much or too little * Attempt to lose weight * Call this office if any problems using CPAP * Return for follow up in 1 year, or sooner if concerns arise Counseling Topics: Spare mask, Weight loss health impact Visit Type: In Office Time Spent with Patient (minutes): 15 Provider Statement: I spent 100% of the Face to Face Visit with the patient with greater than 50% spent counseling the patient and coordination of care.
[2022-09-06 15:49] VITALS: BP 124/65
== END 2022-09-06 15:20 | disposition home or self-care (01) ==
LOC: SC 15:19
PROVIDERS: ATTEND Nurse Practitioner Family
DX: G47.33 Obstructive sleep apnea (adult) (pediatric) (principal); E66.01 Morbid (severe) obesity due to excess calories; Z68.41 Body mass index [BMI] 40.0-44.9, adult
CPT/HCPCS: 99212; G0463

== ENCOUNTER 2022-10-04 06:54 | Outpatient (CLI) | payer MEDICARE ==
--- NOTE | 2022-10-04 09:16 | XRAY Report ---
PROCEDURE: Cervical Spine 2 View INDICATIONS: NECK PAIN, Cervicalgia TECHNIQUE: 3 view(s) of the cervical spine were acquired. COMPARISON: None. FINDINGS: Bones: No fractures or dislocations to the C7 level. The lateral masses of C1 appear intact on the odontoid view. No suspicious bony lesions. There is straightening of the normal cervical lordosis. There is grade 1 retrolisthesis of C5 on C6 (approximately 3 mm) and grade 1 anterolisthesis of C7 on T1 (approximately 4 mm). Moderate degenerative changes in the cervical spine, worse at C4-C7. Soft tissues: No prevertebral soft tissue swelling. IMPRESSION: No acute osseous abnormality. Moderate multilevel degenerative changes of the cervical s pine. Grade 1 retrolisthesis of C5 on C6 and grade 1 anterolisthesis of C7 on T1. Reviewed by: Allyson Claudio MD on 10/04/2022 9:15 AM PDT Approved by: Allyson Claudio MD on 10/04/2022 9:15 AM PDT Station ID: [id number]
--- NOTE | 2022-10-04 09:39 | XRAY Report ---
PROCEDURE: Thoracic Spine 2 View INDICATIONS: NECK PAIN, Cervicalgia TECHNIQUE: 2 views of the thoracic spine were acquired. COMPARISON: None. FINDINGS: Bones: No fractures or dislocations. No suspicious bony lesions. 12 pairs of ribs are noted, and a ppear intact where visualized. There is mild exaggeration of the normal thoracic kyphosis. Moderate degenerative changes including disc space height loss and osteophytosis. Soft tissues: No paravertebral stripe thickening. 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 IMPRESSION: No acute osseous abnormality. Mild exaggeration of normal thoracic kyphosis and moderate degenerative changes of the thoracic spine. Reviewed by: Allyson Claudio MD on 10/04/2022 9:38 AM PDT Approved by: Allyson Claudio MD on 10/04/2022 9:38 AM PDT Station ID: [id number]
== END 2022-10-04 06:55 | disposition home or self-care (01) ==
LOC: DI 06:54
PROVIDERS: ATTEND Nurse Practitioner Family
DX: M43.12 Spondylolisthesis, cervical region (principal); M51.34 Other intervertebral disc degeneration, thoracic region